=== PATIENT | female | born 1945 | race Caucasian/White ===

== ENCOUNTER 2022-06-18 21:29 | Emergency (ER) | payer MEDICARE, OTHER, SELFPAY ==
--- NOTE | 2022-06-18 21:39 | ECG_ITS ---
Measurements Intervals [place] Rate: 104 P: 62 CA: 178 QRS: 30 QRSD: 72 T: 60 QT: 313 QTc: 412 Interpretive Statements SINUS TACHYCARDIA LEFT ATRIAL ENLARGEMENT [-0.15mV P-WAVE IN V1/V2] BORDERLINE ECG NO PREVIOUS ECG AVAILABLE FOR COMPARISON Electronically Signed On 06-19-2022 16:37:07 CDT by Rishi Ivory M.D.
[2022-06-18 21:46] VITALS: BP 188/101; PULSE 104; RESP 16; TEMP 36.8; O2SAT 100
[2022-06-18 22:34] VITALS: PULSE 99; RESP 16; O2SAT 100
[2022-06-18] MEDS: diphenhydrAMINE HCl INJ 50 MG/ML VIAL 25 MG IV PUSH (23:03)
[2022-06-18] MEDS: KETOROLAC 15 MG/ML VIAL (*BKC) IV PUSH (23:04)
[2022-06-18] MEDS: METOCLOPRAMIDE HCL INJ 10 MG/2 ML VIAL IV PUSH (23:04)
[2022-06-18] MEDS: MAGNESIUM SULF 2 GM/WATER 50ML 2 GM/50 ML BAG IVPB (23:05)
--- NOTE | 2022-06-18 23:11 | ED.GENADULT ---
HPI - General Adult General Chief complaint: Headache Stated complaint: HTN Time Seen by Provider: 06/18/22 21:47 History of Present Illness HPI narrative: Patient is a 76-year-old female who presents to the emergency department with chief complaint of neck and head pain. Patient reports that she has history of occipital neuralgia and had a Botox injection done yesterday. Patient reports that she has severe pain on the occipital region of her scalp and reports that the pain is worse with palpation and worse with movement. Patient denies fever denies redness denies fluctuance in the area. The patient reports that she has recently had a booster for COVID-19 and has been somewhat achy since then. Related Data Allergies Allergy/AdvReac Type Severity Reaction Status Date / Time Penicillins Allergy Mild LEONORA Unverified 12/05/08 13:33 CHILD codeine AdvReac Mild Confusion Unverified 12/05/08 13:33 meperidine AdvReac Mild ITCHEY----NO Unverified 12/05/08 13:33 RASH dexamethasone AdvReac Headache Verified 06/18/22 23:03 prednisone AdvReac Seizure Verified 06/18/22 23:02 Review of Systems Review of Systems: A 10 system review of systems was completed on the patient and is negative except for what is stated in the HPI. Nursing and ancillary documentation was reviewed. Exam Narrative: GENERAL: Well-appearing, well-nourished, and in no acute distress. HEAD: Normocephalic, atraumatic. EYES: PERRLA and EOMI. ENT: Nares clear, no rhinorrhea or epistaxis. Mucous membranes moist. NECK: Supple. CHEST: Clear to auscultation. No respiratory distress. HEART: Regular rate and rhythm. No murmur heard. Normal peripheral pulses. ABDOMEN: Soft, nontender, nondistended, normal active bowel sounds. EXTREMITIES: Normal range of motion. No edema. SKIN: Warm, dry, no rash. NEURO: No focal deficits. Alert and oriented x3. PSYCH: Normal mood and affect. Course Vital Signs Vital signs: Vital Signs Temperature 36.8 C 06/18/22 21:46 Pulse Rate 104 H 06/18/22 21:46 Respiratory Rate 16 06/18/22 21:46 Blood Pressure 188/101 H 06/18/22 21:46 Pulse Oximetry 100 06/18/22 21:46 Oxygen Delivery Room Air 06/18/22 21:46 Temperature 36.8 C 06/18/22 21:46 Pulse Rate 101 H 06/19/22 00:45 Respiratory Rate 15 06/19/22 00:45 Blood Pressure 167/87 H 06/19/22 00:42 Pulse Oximetry 100 06/19/22 00:45 Oxygen Delivery Room Air 06/18/22 21:46 Medical Decision Making Vital Signs Vital Signs: Vital Signs Temperature 36.8 C 06/18/22 21:46 Pulse Rate 104 H 06/18/22 21:46 Respiratory Rate 16 06/18/22 21:46 Blood Pressure 188/101 H 06/18/22 21:46 Pulse Oximetry 100 06/18/22 21:46 Oxygen Delivery Room Air 06/18/22 21:46 Temperature 36.8 C 06/18/22 21:46 Pulse Rate 101 H 06/19/22 00:45 Respiratory Rate 15 06/19/22 00:45 Blood Pressure 167/87 H 06/19/22 00:42 Pulse Oximetry 100 06/19/22 00:45 Oxygen Delivery Room Air 06/18/22 21:46 Discharge Plan Discharge Clinical Impression: Headache Patient Disposition: Home, Self-Care Condition: Stable Instructions: Antibiotic Form, Acute Headache (ED) Follow-up/Referrals: PHYSICIAN NOT ON STAFF,NONSTAFF [Primary Care Provider] - Time of Disposition: 00:49
[2022-06-18 23:22] VITALS: PULSE 98; RESP 15; O2SAT 100
[2022-06-18 23:30] VITALS: PULSE 97; RESP 18; O2SAT 97
[2022-06-18 23:31] VITALS: BP 154/79; PULSE 99; RESP 14; O2SAT 99
[2022-06-18 23:59] VITALS: PULSE 98; RESP 14; O2SAT 99
[2022-06-19] VITALS (10 sets, daily range): BP systolic 147–167; BP diastolic 72–87; PULSE 95–108; RESP 13–20; TEMP 36.8; O2SAT 98–100
== END 2022-06-19 01:10 | disposition home or self-care (01) ==
PROVIDERS: Emergency Provider Emergency Medicine
DX: R51.9 Headache, unspecified (principal)
CPT/HCPCS: 93005; 96365; 96375; 99284; J1200; J1885; J2765; J3475